=== PATIENT | female | born 1970 | race Caucasian/White ===

== ENCOUNTER 2016-07-11 18:04 | Emergency (ER) | payer OTHER ==
--- NOTE | 2016-07-11 19:34 | ED MAR SUMMARY ---
..... Medication Administration Record [facility] [address] [place], [place] [id number] Patient: BELEN HUGIGNS Visit ID: [id number] 45y, F Weight: (not available) Height/Length: (not available) BMI: (not available) ALLERGIES:
--- NOTE | 2016-07-11 19:34 | ED NURSING NOTES ---
Clinical Report - Nurses [facility] [address] [place] [place] [address] 07/11/2016 18:04 Patient: BELEN HUGGINS DISPOSITION / DISCHARGE Departure time: 1919. The patient left the Emergency Department without being seen by a physician. The patient appears to be alert, oriented x4, coherent and in no acute distress. Unable to locate patient. Patient paged with no response. The patient notified the ED staff prior to leaving the department and stated is leaving the ED due to the long waiting time. She left the Emergency Department ambulatory and via private vehicle. ( informed by registration staff when paging pt for triage pt had already left approx. 20 minutes prior.). --19:33 Jimmie Blanco R.N. Locked/Released at 07/11/2016 19:34 by Jimmie Blanco R.N.
--- NOTE | 2016-07-11 19:34 | ED MED RECONCILIATION SUMMARY ---
Patient: BELEN HUGGINS Medication Reconciliation Report [facility] VisitID: [id number] [address] [place] [address] 45y, F Registration Date/Time: 07/11/2016 Weight: (not available) Height/Length: (not available) BMI: (not available) ALLERGIES: The patient's Home Medications are listed below: Not obtained. The source(s) of the original Home Medication information: Not obtained. The following Medications were given to the patient in the Emergency Department: None. The following Medications were prescribed to the patient: None.
--- NOTE | 2016-07-11 19:34 | ED MAR SUMMARY ---
..... Medication Administration Record [facility] [address] [place], [place] [id number] Patient: BELEN HUGGINS Visit ID: [id number] 45y, F Weight: (not available) Height/Length: (not available) BMI: (not available) ALLERGIES:
--- NOTE | 2016-07-11 19:34 | ED MED RECONCILIATION SUMMARY ---
Patient: BELEN HUGGINS Medication Reconciliation Report [facility] VisitID: [id number] [address] [place] [address] 45y, F Registration Date/Time: 07/11/2016 Weight: (not available) Height/Length: (not available) BMI: (not available) ALLERGIES: The patient's Home Medications are listed below: Not obtained. The source(s) of the original Home Medication information: Not obtained. The following Medications were given to the patient in the Emergency Department: None. The following Medications were prescribed to the patient: None.
--- NOTE | 2016-07-11 19:34 | ED NURSING NOTES ---
Clinical Report - Nurses [facility] [address] [place] [address] 07/11/2016 18:04 Patient: BELEN HUGGINS DISPOSITION / DISCHARGE Departure time: 1919. The patient left the Emergency Department without being seen by a physician. The patient appears to be alert, oriented x4, coherent and in no acute distress. Unable to locate patient. Patient paged with no response. The patient notified the ED staff prior to leaving the department and stated is leaving the ED due to the long waiting time. She left the Emergency Department ambulatory and via private vehicle. ( informed by registration staff when paging pt for triage pt had already left approx. 20 minutes prior.). --19:33 Jimmie Blanco R.N. Locked/Released at 07/11/2016 19:34 by Jimmie Blanco R.N.
== END 2016-07-11 19:20 | disposition left against medical advice (07) ==
LOC: ED SRH 18:04
DX: Z53.21 Procedure and treatment not carried out due to patient leaving prior to being seen by health care provider (principal)